=== PATIENT | male | born 1955 | race Caucasian/White ===

== ENCOUNTER 2018-03-02 06:25 | Day surgery (SDC) | payer OTHER ==
--- NOTE | 2018-03-02 06:39 | EDPHY ---
H & P Time Seen by Provider: 03/02/18 06:34 HPI/ROS: CHIEF COMPLAINT: Rib in the throat HISTORY OF PRESENT ILLNESS: Patient says he has had intermittent sensations of food getting caught in his throat while swallowing over the past 30 to 35 years. Last night he was eating ribs and had sensation of meat getting stuck in his throat just posterior to his sternal notch. He has been unable to swallow saliva for the past 12 hr as this happened around 6:00 p.m.. He presents today with foreign body sensation in his esophagus which is severe and unable to swallow. He coughed a couple times initially but has not had any further coughing or trouble breathing. Worse with trying to drink fluids including Coca-Cola. REVIEW OF SYSTEMS: Eye: No symptoms ENT: no sore throat Cardiac: No chest pain Pulmonary: Not short of breath Abdomen: No vomiting Musculoskeletal: No symptoms Skin: no rash Neuro: no headache Constitutional: no fever : No symptoms A comprehensive 10 point review of systems is otherwise negative aside from elements mentioned in the history of present illness. PAST MEDICAL HISTORY: CLL Social history: Primary care is, [facility] General Appearance: Alert and conversant, cooperative. Eyes: No scleral icterus. ENT, Mouth: Normal mucous membranes. No angioedema or foreign body seen Respiratory: Normal respiratory effort, breath sounds equal, lungs are clear to auscultation. No wheezing or stridor or drooling Cardiovascular: Regular rate and rhythm. Gastrointestinal: Abdomen is soft and non tender. Neurological: Alert, face symmetric, normal motor and sensory in extremities. Skin: Warm and dry, no rashes. Musculoskeletal: No peripheral edema. Psychiatric: Not agitated. Emergency Department course/MDM: IV started, will likely require endoscopy given his history. Diagnosis of esophageal food impaction, gastroenterology consultation. Think that food aspiration or esophageal perforation or cardiac problem are all unlikely. Smoking Status: Never smoked Constitutional: Initial Vital Signs Temperature (C) 36.6 C 03/02/18 06:29 Heart Rate 70 03/02/18 06:29 Respiratory Rate 18 03/02/18 06:29 Blood Pressure 98/85 H 03/02/18 06:29 O2 Sat (%) 99 03/02/18 06:29 O2 Delivery Mode Room Air Allergies/Adverse Reactions: No Known Allergies Allergy (Unverified 03/02/18 06:31) Home Medications: Medication Instructions Recorded MULTIVITAMINS 08/03/09 Medical Decision Making Consult/Admit Bed Type: Hernandezastrid 655am to endoscopy Departure - Departure Disposition: To OP Cath/Surgery Clinical Impression: Esophageal foreign body Qualifiers: Encounter type: initial encounter Qualified Code(s): T18.108A - Unspecified foreign body in esophagus causing other injury, initial encounter Condition: Good Referrals: Keron Vargas MD [Primary Care Provider] - As per Instructions
[2018-03-02] MEDS ORDERED: NS 1,000 ML IV ONE (06:49)
[2018-03-02] MEDS ORDERED: REMIFENTANIL HCL 1 MG VIAL ONE (08:12)
[2018-03-02] MEDS ORDERED: PROPOFOL/EMULSION 500 MG/50 ML BOTTLE IV ONE (08:12)
[2018-03-02] MEDS ORDERED: LR 1,000 ML IV ONE (08:23)
--- NOTE | 2018-03-02 08:23 | PDANEPAE ---
ANE History of Present Illness 63 yo for egd/ food impaction ANE Past Medical History - Cardiovascular History Hx Hypertension: No Hx Arrhythmias: No Hx Chest Pain: No Hx Coronary Artery / Peripheral Vascular Disease: No Hx CHF / Valvular Disease: No Hx Palpitations: No - Pulmonary History Hx COPD: No Hx Asthma/Reactive Airway Disease: No Hx Oxygen in Use at Home: No Hx Sleep Apnea: No - Endocrine History Hx Diabetes: No ANE Review of Systems Review of Systems: - Exercise capacity METS (RN): 4 METS ANE Patient History - Allergies Allergies/Adverse Reactions: No Known Allergies Allergy (Unverified 03/02/18 06:31) - Home Medications Home Medications: MULTIVITAMINS 08/03/09 [Last Taken Unknown] - NPO status NPO Status: no food or drink >8 hours NPO Since - Liquids (Date): 03/01/18 NPO Since - Liquids (Time): 18:00 NPO Since - Solids (Date): 03/01/18 NPO Since - Solids (Time): 18:00 - Anes Hx Anes Hx: post operative nausea - Smoking Hx Smoking Status: Never smoked ANE Labs/Vital Signs - Vital Signs Blood Pressure: 103/80 Heart Rate: 63 Respiratory Rate: 18 O2 Sat (%): 99 Height: 6 ft Weight: 86.183 kg ANE Physical Exam - Airway Neck exam: FROM Mallampati Score: Class 2 Mouth exam: normal dental/mouth exam - Pulmonary Pulmonary: no respiratory distress - Cardiovascular Cardiovascular: regular rate and rhythym - ASA Status ASA Status: II, E ANE Anesthesia Plan Anesthesia Plan: general endotracheal anesthesia
--- NOTE | 2018-03-02 08:28 | PDGENHP ---
History & Physical Chief Complaint: fb in esoph long hx dysphagia History of Present Illness: fb in esoph for 14 hours Pertinent Past, Social, Family History: cll. no tobacoo. 2 beers per day Relevant Physical Exam: A+OX3. CTA. S1S2, RRR. +BS, soft nt Cardiorespiratory Assessment: class 2 e
[2018-03-02] MEDS ORDERED: fentaNYL 100 MCG/2 ML INJ ONE (08:55)
[2018-03-02] MEDS ORDERED: ALBUTEROL 3 ML DEYVIAL ONE ×2 (09:14→09:52)
[2018-03-02] MEDS ORDERED: fentaNYL 100 MCG/2 ML INJ IVP PRN (09:15)
[2018-03-02] MEDS ORDERED: ONDANSETRON 4 MG/2 ML VIAL IVP PRN (09:15)
[2018-03-02] MEDS ORDERED: NALOXONE HCL 0.4 MG/ML INJ IVP PRN (09:15)
[2018-03-02] MEDS: ALBUTEROL 3 ML DEYVIAL IH PRN ×2 (09:20→10:05)
--- NOTE | 2018-03-02 09:30 | GIREPORT ---
[facility] Surgical Services - Endoscopy Department Patient Name: Trent Dutta Procedure Date: 03/02/2018 8:11 AM Patient Type: Inpatient Attending MD/ ER Physician: Kulwant Carvajal Procedure: Upper GI endoscopy Indications: Dysphagia, Foreign body in the esophagus Providers: Donnie Robert MD Referring MD: Keron Vargas Medicines: General Anesthesia Complications: No immediate complications. Estimated blood loss: Minimal. Description of Procedure: After obtaining informed consent, the endoscope was passed under direct vision. Throughout the procedure, the patient's blood pressure, pulse, and oxygen saturations were monitored continuously. The Endoscope was intro duced through the mouth, and advanced to the third part of duodenum. The mac ent tolerated the procedure well. The upper GI endoscopy was technically difficult and complex due to presence of foreign body and narrowing. Th e patient tolerated the procedure well. Findings: Food was found in the lower third of the esophagus. Removal was accompl ished with a rat-toothed forceps and Kelly net. Estimated blood loss was minim al. Mucosal changes including ringed esophagus, longitudinal furrows and small-caliber esophagus were found in the entire esophagus. Biopsies we re obtained from the proximal and distal esophagus with cold forceps for histology of suspected eosinophilic esophagitis. Estimated blood loss w as minimal. Scattered mild inflammation characterized by erythema, friability and granularity was found in the gastric antrum. Biopsies were taken with a cold forceps for histology. Estimated blood loss was minimal. Diffuse moderate inflammation characterized by congestion (edema), eros ions and erythema was found in the duodenal bulb. Biopsies were taken with a cold forceps for histology. Estimated blood loss was minimal. The second portion of the duodenum and third portion of the duodenum we re normal. Biopsies were taken with a cold forceps for histology. Estimate d blood loss was minimal. The exam was otherwise without abnormality. Estimated Blood Loss: Estimated blood loss was minimal. Post Op Diagnosis: - Food was found in the esophagus. Removal was successful. - Esophageal mucosal changes consistent with eosinophilic esophagitis. Biopsied. - Gastritis. Biopsied. - Duodenitis. Biopsied. - Normal second portion of the duodenum and third portion of the duoden um. Biopsied. - The examination was otherwise normal. Recommendation: - Await pathology results. - My office will call with the pathology result with 5-7 days. If you h ave not heard from my office by 09-29, do not assume the pathology is roshan l, please call [phone] to get the pathology results. - Use Protonix (pantoprazole) 40 mg PO daily. Take 30-60 minutes before breakfast - If biopsy are consistent with Eosinophilic Esophagitis (EoE), then re juvenal to associate marketing manager and consider swallowed not inhaled fluticasone prn. - Cut food into small pieces and chew well. - Repeat upper endoscopy in 4 weeks for retreatment. - Discharge patient to home (ambulatory). - Return to primary care physician as previously scheduled. - Thank you for allowing me to help in your patient's care. Do not hesi ferro to call with any questions. Attending Participation: I personally performed the entire procedure. Yesica Fields M.D Donnie Robert MD 03/02/2018 9:29:46 AM This report has been signed electronicallyMathew MD Yesica Number of Addenda: 0 Note Initiated On: 03/02/2018 8:11 AM [email or web address]
[2018-03-02 12:56] VITALS: BP 128/74
--- NOTE | 2018-03-02 13:42 | GCON ---
[f rep st] CONSULTATION DATE OF CONSULTATION: 03/02/2018 REASON FOR CONSULTATION: Hypoxia after EGD. PCP: Dr. Vargas. HISTORY OF PRESENT ILLNESS: A 63-year-old male with a history of CLL, presenting with food stuck in his throat. He says he has had difficulties swallowing for the past 30 years. He says he coughs up food at least weekly. Last night, he was eating ribs and had a sensation of meat getting stuck in his throat just posterior to his sternal notch. He was unable to swallow saliva for the past 12 hours as this episode occurred at 6 p.m. He presented to the emergency room this morning with a foreign body sensation in his esophagus, which is severe, and not able to swallow at all. The patient was evaluated by Dr. Robert and taken to EGD for removal. After the procedure, patient became dyspneic and was hypoxic to 85. Per my interview, patient denies chest pain or shortness of breath at baseline. He rides his bicycle up to 75 miles a couple times a week without any issues. He did report sinus congestion last week, but no fevers, chills, or sweats. No cough. REVIEW OF SYSTEMS: I completed a 10-point review of systems, negative, except as noted in HPI. PAST MEDICAL HISTORY: CLL. PAST SURGICAL HISTORY: Appendectomy. SOCIAL HISTORY: He was previously an electrical systems drafter. Lives in [place] with his . Cycles up to 75 miles a couple times a week. No alcohol, tobacco, or illicits. FAMILY HISTORY: Noncontributory HOME MEDICATIONS: Multivitamin. ALLERGIES: No known drug allergies. PHYSICAL EXAMINATION: VITAL SIGNS: Temperature 36.5. Blood pressure is 127/76 , respiration rate in the 20s. O2 saturation after procedure was 81, is now 95 % with ambulation on room air. GENERAL: He is well appearing, thin, sitting up in bed, in no acute distress. HEENT: PERRLA. EOMI. Oropharynx clear. CV: Regular rate and rhythm. LUNGS: Diminished at the left base. No crackles or wheezing. ABDOMEN: Soft, nontender, nondistended. Positive bowel sounds. : No [place]. MUSCULOSKELETAL: 5/5 upper and lower extremity strength. NEUROLOGIC: 2 through 12 intact. PSYCH: Alert and oriented x3. Chest x-ray is personally reviewed by me. Atelectasis, left lower lobe. No effusion or opacity. EGD report: Food was found in the esophagus and successfully removed. Esophageal mucosal changes were consistent with eosinophilic esophagitis, which was biopsied. It also showed gastritis, which was biopsied. ASSESSMENT AND PLAN: 1. Acute hypoxic respiratory failure: Suspect this is secondary to sedation and procedure. X-ray shows atelectasis. No evidence of infection or effusion. The patient remained in the PACU for an hour after procedure and has been stable on room air, sitting and ambulatory, now at 95%. He denies any shortness of breath. I think it is safe for him to go home. He was given strict return precautions. 2. Gastritis/esophagitis: GI will prescribe Protonix 40 mg daily. If biopsies are consistent with eosinophilic esophagitis, they will refer to director of group counseling program and consider swallowed fluticasone. The patient was advised to cut food into small pieces and chew well. 3. Patient is stable for discharge home. Followup: Repeat endoscopy in 4 weeks. Thank you for this consultation. /[id number]/MODL MTDD
--- NOTE | 2018-03-02 20:22 | POSTANESTH ---
Post Anesthetic Evaluation Cardiovascular Status: Normal, Stable Respiratory Status: Normal, Stable Level of Consciousness/Mental Status: Can Participate in Eval Pain Control: Adequate, Prn Tx Ordered Nausea/Vomiting Control: Adequate, Prn Tx Ordered Complications Possibly Related to Anesthesia: None Noted
== END 2018-03-02 12:55 | disposition home or self-care (01) ==
LOC: FSGY 08:07 → F3E 10:21 → UNDOADMOB 10:21 → FSGY 12:55
PROVIDERS: ATTEND Internal Medicine Gastroenterology
DX: T18.128A Food in esophagus causing other injury, initial encounter (principal); K20.0 Eosinophilic esophagitis; M79.5 Residual foreign body in soft tissue; J96.01 Acute respiratory failure with hypoxia; Z85.6 Personal history of leukemia
CPT/HCPCS: J2704; J3010; J7613

== ENCOUNTER → 2019-01-11 | Outpatient (CLI) | payer OTHER | LOC: FIMAGING 14:52 | PROVIDERS: ATTEND Internal Medicine | DX: R33.9 Retention of urine, unspecified (principal) ==